=== PATIENT | female | born 1940 | race Caucasian/White ===

== ENCOUNTER 2016-12-09 00:12 | Emergency (ER) | payer MEDICARE, BC ==
[~2016-12-09] VITALS: Ht 157.5 cm; Wt 81.8 kg
[~2016-12-09 00:12] MED LIST: ASPI81TA11 PO; BUPR-175 PO; CITA-48 PO; GLUCTAB PO; LORTA5 PO; MIRA0.5T PO; PROT40TA PO; ZOLP1TAB32 PO
[2016-12-09 00:15] VITALS: BP 135/83; PULSE 92; RESP 18; TEMP 97.9; O2SAT 95
[2016-12-09] MEDS ORDERED: PROT40TA PO (00:49)
[2016-12-09] MEDS ORDERED: AMBI5TAB PO (00:49)
[2016-12-09] MEDS ORDERED: ASPI1TAB69 PO (00:49)
[2016-12-09] MEDS ORDERED: BUPR75TA PO (00:49)
[2016-12-09] MEDS ORDERED: METF1000 PO (00:49)
[2016-12-09] MEDS ORDERED: MIRA0.5T PO (00:49)
[2016-12-09] MEDS ORDERED: LISI10TA3 PO (00:50)
[2016-12-09] MEDS ORDERED: LATA0.002 EACH EYE (00:50)
[2016-12-09] MEDS ORDERED: diphenhydrAMINE HCL 50 MG/ML VIAL IVP ONE (01:45)
[2016-12-09] MEDS ORDERED: FAMOTIDINE 20 MG/2 ML VIAL IV PUSH ONE (01:45)
[2016-12-09] MEDS ORDERED: SODIUM CHLORIDE 0.9% FLUSH 5 ML FLUSH IVF PRN (01:45)
[2016-12-09 01:56] VITALS: BP 147/81; PULSE 83; O2SAT 95
[2016-12-09] MEDS ORDERED: methylPREDNISolone SOD SUCC 125 MG/2 ML VIAL IV PUSH ONE (02:00)
--- NOTE | 2016-12-09 02:14 | PD ---
HPI Chief Complaint: Allergic/Adverse Reaction Time Seen by Provider: 01:43 Travel History International Travel<30 days: No Contact w/Intl Traveler<30days: No Traveled to known affect area: No History of Present Illness HPI 76-year-old female presents to the emergency department by private transportation for complaint of allergic reaction. Patient reports that she has only had a recent change in dosage of medication she has been taking on a regular basis. Patient is prescribed metformin 500 mg twice daily and recently her primary care provider changed her dose to metformin 1000 mg twice daily. Patient reports since the new dosage of metformin starting on she has not felt well. Patient states that this evening she took a dose of metformin around 8 PM and by 9:30 PM she did not feel well had frequent episodes of sneezing and nasal congestion and then at 11:30 that her face and noted significant swelling about the eyes. Patient denies any lip tongue or throat swelling no stridor or hoarseness. No shortness of breath or wheezing. No chest pain palpitations near-syncope or syncope. No nausea vomiting diarrhea or abdominal cramping. No urticarial rash. Patient denies any other new foods or medications new clothing new detergents new linens new pets or other known allergens. 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 Patient denies any consumption of either this evening. Patient did take Benadryl prior to arrival to the emergency department and artery notes feeling some improvement. PFSH Past Medical History Narrative Medical Asthma allergic reactions dyslipidemia diabetes anemia arthritis GERD hypertension sleep apnea ovarian cyst tubal ligation umbilical herniorrhaphy hysterectomy tobacco use alcohol use; nursing notes reviewed Hx Anticoagulant Therapy: Yes (81 MG ASA) Anemia: Yes Arthritis: Yes (RIGHT FOOT) Asthma: Yes ("ALLERGY INDUCED") Autoimmune Disease: No Anxiety: Yes Depression: Yes Cancer: No Cardiovascular Problems: Yes (HTN) High Cholesterol: Yes Chemotherapy: No Chest Pain: Yes Congestive Heart Failure: No COPD: No Cerebrovascular Accident: No Diabetes: Yes (TYPE 2) Patient Takes Glucophage: Yes Diminished Hearing: No Endocrine: Yes Gastrointestinal Disorders: Yes GERD: Yes Genitourinary: No Headaches: No Hiatal Hernia: Yes Hypertension: Yes (STRESS RELATED, NO MEDS) Immune Disorder: No Kidney Stones: No Musculoskeletal: Yes (NECK PAIN, ARTHRITIS RIGHT KNEE) Neurologic: No Psychiatric: Yes (ANXIETY) Reproductive: No Respiratory: Yes (ALLERGY INDUCED) Migraines: No Myocardial Infarction: No Radiation Therapy: No Renal Failure: No Seizures: No Sickle Cell Disease: No Sleep Apnea: Yes (CPAP) Thyroid Disease: No Ulcer: No Tetanus Vaccination: Unknown Influenza Vaccination: Yes ?: Not Menopausal: Yes : 2 Para: 2 Ovarian Cysts: Yes Tubal Ligation: Yes Past Surgical History Abdominal Surgery: Yes (2 UMBILICAL SURGERIES WITH MESH PLACEMANT) AICD: No Body Medical Devices: MESH IN ABDOMEN Cardiac Surgery: No Ear Surgery: No Endocrine Surgery: No Eye Surgery: No Genitourinary Surgery: Yes (bladder lift) Gynecologic Surgery: Yes (HYSTERECTOMY) Hysterectomy: Yes (PARTIAL) Joint Replacement: No Oral Surgery: Yes (TONSILLECTOMY ) Pacemaker: No Thoracic Surgery: No Tonsillectomy: Yes Other Surgery: Yes (umbilical hernia repair, "rectal" hernia repair,hiatal hernia repair) Social History Alcohol Use: No Tobacco Use: No Substance Use: No Allergies-Medications (Allergen,Severity, Reaction): Coded Allergies: Monosodium Glutamate (Verified Allergy, Severe, Anaphylaxis, 12/09/16) Penicillin (Verified Allergy, Severe, Rash, 12/09/16) SWELLING FACE Sulfa (Verified Allergy, Severe, Wheezing, 12/09/16) PT DOESN'T REMEMBER BEING ALLERGIC Flagyl (Verified Allergy, Mild, Swelling, 12/09/16) PT. DEVELOPEDSWELLING AROUNND RIGHT EYE,AND REDNESS. Uncoded Allergies: RED WINE (Allergy, Intermediate, Wheezing, 10/02/16) . Reported Meds & Prescriptions Reported Meds & Active Scripts Active Reported Latanoprost Opth Drops (Latanoprost) 0.005% Drops 1 Drop EACH EYE HS Refrigerate until opened. Lisinopril 10 Mg Tab 10 Mg PO DAILY Ambien (Zolpidem Tartrate) 5 Mg Tab 5 Mg PO HS PRN Mirapex (Pramipexole Dihydrochloride) 0.5 Mg Tab 0.5 Mg PO HS Protonix (Pantoprazole Sodium) 40 Mg Tab 40 Mg PO DAILY Metformin (Metformin HCl) 1,000 Mg Tab 1,000 Mg PO BIDPC With meals Bupropion HCl 75 Mg Tab 75 Mg PO DAILY Aspirin 81 Mg Tabdr 81 Mg PO DAILY Ambien 5 Mg Tab (Zolpidem Tartrate) 5 Mg Tab 5 Mg PO HS Review of Systems Except as stated in HPI: all other systems reviewed are Neg General / Constitutional: No: Fever, Chills Eyes: No: Visual changes HENT: Positive: Rhinorrhea, No: Headaches, Sore Throat, Congestion, Neck Stiffness, Neck Pain Cardiovascular: No: Chest Pain or Discomfort Respiratory: No: Shortness of Breath, Wheezing Gastrointestinal: No: Nausea, Vomiting, Abdominal Pain Genitourinary: No: Dysuria Musculoskeletal: No: Myalgias, Arthralgias Skin: Positive Rash (periorbital facial erythema), No Hives Neurologic: No: Weakness Psychiatric: No: Anxiety Hematologic/Lymphatic: No: Easy Bruising Physical Exam Narrative GENERAL: Well-developed well-nourished female in no acute distress no respiratory distress; no stridor or hoarseness. SKIN: Warm and dry. No urticaria no vesicles no pustules no petechia no purpura erythema of the cheeks and periorbital erythema and edema HEAD: Atraumatic. Normocephalic. EYES: Pupils equal and round. No scleral icterus. No injection or drainage. ENT: No nasal bleeding or discharge. Mucous membranes pink and moist. Airway is patent no angioedema. NECK: Trachea midline. No JVD. CARDIOVASCULAR: Regular rate and rhythm. RESPIRATORY: No accessory muscle use. Clear to auscultation. Breath sounds equal bilaterally. GASTROINTESTINAL: Abdomen soft, non-tender, nondistended. Hepatic and splenic margins not palpable. MUSCULOSKELETAL: Extremities without clubbing, cyanosis, or edema. No obvious deformities. NEUROLOGICAL: Awake and alert. No obvious cranial nerve deficits. Motor grossly within normal limits. Five out of 5 muscle strength in the arms and legs. Normal speech. PSYCHIATRIC: Appropriate mood and affect; insight and judgment normal. Data Data Last Documented VS Vital Signs Date Time Temp Pulse Resp B/P Pulse Ox O2 Delivery O2 Flow Rate FiO2 12/09/16 01:56 83 147/81 95 Room Air 12/09/16 00:15 97.9 18 Orders Ecg Monitoring (12/09/16 01:43) Iv Access Insert/Monitor (12/09/16 01:43) Oximetry (12/09/16 01:43) Diphenhydramine Inj (Benadryl Inj) (12/09/16 01:45) Famotidine Inj (Pepcid Inj) (12/09/16 01:45) Sodium Chloride 0.9% Flush (Ns Flush) (12/09/16 01:45) Blood Glucose (12/09/16 01:43) Methylprednisolone So Succ Inj (Solumedr (12/09/16 02:00) MDM Medical Decision Making Medical Screen Exam Complete: Yes Emergency Medical Condition: Yes Medical Record Reviewed: Yes Differential Diagnosis Allergic reaction adverse medication reaction without anaphylaxis or angioedema Narrative Course glucose: 170 Patient administered Benadryl 25 mg IV, Solu-Medrol 125 mg IV and Pepcid 20 mg IV At 2:54 AM patient feels clinically improved and is stable for outpatient management Diagnosis Primary Impression: Allergic reaction Qualified Code: T78.40XA - Allergic reaction, initial encounter Referrals: Primary Care Physician 1 day Patient Instructions: General Instructions Additional Instructions: Continue to use as tolerated Benadryl/diphenhydramine 25-50 mg every 4-6 hours as needed for hives, allergic reaction Continue Zantac 150 milligrams twice daily for the next 7 days Take as tolerated steroid taper over the next 6 days; monitor blood sugars closely Follow-up with primary care provider on Saturday call office to schedule follow- up appointment for review of medications Return to the emergency department for any concerns or change in condition Avoid overheating; may use cool compresses; increase fluid hydration Med/Other Pt SpecificInfo: Prescription(s) given Scripts Methylprednisolone Dosepak (Medrol Dosepak)4 Mg Dspk4 Mg PO DIRECTED #1 DSPK Ref 0 Per Pharmacist direction Prov:Reyna Guerra MD 12/09/16 Disposition: 01 DISCHARGE HOME Condition: Stable Reyna Guerra MD Dec 09, 2016 02:14
[2016-12-09] MEDS ORDERED: MEDR4PAK PO (02:51)
== END 2016-12-09 02:59 | disposition home or self-care (01) ==
LOC: PHED 00:12
DX: T78.40XA Allergy, unspecified, initial encounter (principal)
CPT/HCPCS: 96374; 96375; 99283; J1200; J2930

== ENCOUNTER → 2017-01-08 | Day surgery (SDC) | payer MEDICARE, BC ==
[~2017-01-08] MED LIST changes: +AMBI5TAB PO; +ASPI1TAB69 PO; -ASPI81TA11 PO; +BUPIVACAINE/EPINEPHRINE 0.5% PF 30 ML VIAL ONE; -BUPR-175 PO; +BUPR75TA PO; -CITA-48 PO; -GLUCTAB PO; +KETOROLAC TROMETHAMINE 30 MG/ML (IVP) VIAL IV PUSH ONE; +LACTATED RINGER'S 1000 ML INJ 1,000 ML ONE; +LATA0.002 EACH EYE; +LISI10TA3 PO; -LORTA5 PO; +MEDR4PAK PO; +METF1000 PO; +MIDAZOLAM HCL 2 MG/2 ML VIAL ONE; +ONDANSETRON HCL 4 MG/2 ML VIAL IV PUSH ONE; +PROPOFOL 200 MG/20 ML AMP IV ONE; +SODIUM CHLORIDE 0.9% 250 ML ADDBAG IV ONE; +VANCOMYCIN HCL 1000 MG VIAL ONE; +metroNIDAZOLE 500 MG INJ 100 ML IV ONE
--- NOTE | 2017-01-08 18:05 | TN ---
cc: RAO QUINN M.D. DATE OF SURGERY: 01/08/2017 PREOPERATIVE DIAGNOSIS: 1. Cholelithiasis, cholecystitis. 2. Umbilical hernia. 3. Incisional hernia. POSTOPERATIVE DIAGNOSIS: Cholelithiasis, cholecystitis with incisional hernia. PROCEDURE: 1. Laparoscopic cholecystectomy. 2. Laparoscopic lysis of adhesions. 3. Open repair of incisional hernia from previous umbilectomizes. ANESTHESIA: General. SURGEON: Rao Quinn MD. INDICATIONS FOR PROCEDURE: This is a pleasant 76 year old female who was found to have symptomatic biliary colic. She also had a hernia seen on CT scan. Plans were made for biopsy. PROCEDURE: The patient was taken to the operating room and placed in supine position after anesthesia. Her abdomen was prepped with Betadine. A timeout was done. She was given preoperative antibiotics. We made an incision just below the Xiphoid and entered the abdomen directly and placed a 10 mm trocar. A camera was introduced. A 5 mm port was placed in the midline below the subxiphoid incision. We were able to visualize omentum that stuck into umbilical hernia which is reduced. Once we were able to identify this defect it measures approximately 2 cm's. This appeared to be just below mesh, this has been placed. Once we free up all the omentum, a 5 mm trocar was then placed through the hernia and camera was placed through this place. We were then able to direct our attention to the gallbladder it was grasped superiorly and laterally identifying the cystic duct. The cystic artery is non-existent and cauterized. The cystic duct is doubly ligated with hemoclips. Transected and the gallbladder was then dissected off the gallbladder bed, placed in a endo catch and pulled back to the umbilical incision from the subxiphoid incision and passed off the field. The liver is smooth, peritoneal surfaces were removed. No other gross abnormalities seen. We then evacuated all the irrigating solution and the co2 is evacuated. We then closed the fascia at the subxiphoid incision with the 0 Vicryl. The skin is closed with a 4-0 Monocryl. We had previously identified the hernia defect. We extended the incision approximately 3 cm's to again extended the superior and inferior edges of this defect. The inferior portion of the mesh had to be cut to further delineate the fascial edges. Once we were able to grasp the fascial edges we were able to reapproximate them in a vertical fashion with interrupted Ethibond suture to close the fascial defect completely. We then closed the deep layer with 3-0 Vicryl and skin with 4-0 Monocryl, Steri-Strips applied. Sterile bandage applied. The patient tolerated the procedure well with no immediate postoperative complications. MD ELE Garrison/jacquelyn /5:50 PM /5:55 PM
== END | disposition home or self-care (01) ==
LOC: ESDC 09:18
PROVIDERS: ATTEND Surgery
DX: K80.10 Calculus of gallbladder with chronic cholecystitis without obstruction (principal); K42.9 Umbilical hernia without obstruction or gangrene; K43.2 Incisional hernia without obstruction or gangrene
CPT/HCPCS: 00790; 00832; 47562; 49560; 88304; J1885; J2250; J2405; J3010; J3370; J7120